=== PATIENT | male | born 1955 | race Caucasian/White ===

== ENCOUNTER 2016-11-26 17:30 | Inpatient (IN) | payer MEDICARE ==
[2016-11-26] MEDS ORDERED: SODIUM CHLORIDE 0.9% 500 ML IV STA (17:51)
[2016-11-26] MEDS ORDERED: LORazepam 2 MG/ML SYRINGE IV STA (17:51)
--- NOTE | 2016-11-26 18:28 | ED ---
Seizure HPI - General Chief Complaint: Seizure Stated Complaint: seizure Time Seen by Provider: 11/26/16 17:51 Source: patient, RN notes reviewed Mode of arrival: wheelchair Limitations: no limitations - History of Present Illness Initial Comments: 61-year-old male presents emergency Department with chief complaint of seizure. Patient states she's had 7 seizures today. Most recent one was one hour prior arrival which lasted 2 minutes tonic-clonic in nature. Patient has a history of epilepsy in which she takes Depakote and Dilantin. Patient states that he sees a neurologist in [place]. He has been taking his medications as prescribed. Patient has no complaints at this time. Patient denies any fever, chills. Patient states that he rarely has seizures and this is abnormal. Patient denies any nausea, vomiting diarrhea constipation. Patient offers no other complaints. - Related Data Home Medications Medication Instructions Recorded Confirmed Divalproex [Depakote] 1,500 mg PO BID 11/26/16 11/26/16 Phenytoin Sodium Extended 300 mg PO TID 11/26/16 11/26/16 [Dilantin] Allergies Allergy/AdvReac Type Severity Reaction Status Date / Time No Known Allergies Allergy Verified 11/26/16 17:43 Review of Systems ROS Statement: Those systems with pertinent positive or pertinent negative responses have been documented in the HPI. ROS Other: All systems not noted in ROS Statement are negative. Past Medical History Past Medical History: Diabetes Mellitus, Seizure Disorder History of Any Multi-Drug Resistant Organisms: None Reported Past Surgical History: No Surgical Hx Reported Past Psychological History: No Psychological Hx Reported Smoking Status: Never smoker Past Alcohol Use History: None Reported Past Drug Use History: None Reported General Exam Limitations: no limitations General appearance: alert, in no apparent distress Head exam: Present: atraumatic, normocephalic, normal inspection Neck exam: Present: normal inspection. Absent: tenderness, meningismus, lymphadenopathy Respiratory exam: Present: normal lung sounds bilaterally. Absent: respiratory distress, wheezes, rales, rhonchi, stridor Cardiovascular Exam: Present: regular rate, normal rhythm, normal heart sounds. Absent: systolic murmur, diastolic murmur, rubs, gallop, clicks GI/Abdominal exam: Present: soft, normal bowel sounds. Absent: distended, tenderness, guarding, rebound, rigid Neurological exam: Present: alert, oriented X3, CN II-XII intact, reflexes normal. Absent: motor sensory deficit Skin exam: Present: warm, dry, intact, normal color. Absent: rash Course Vital Signs 11/26/16 17:41 Temperature 98.0 F Pulse Rate 109 H Respiratory 18 Rate Blood Pressure 116/74 O2 Sat by Pulse 95 Oximetry Medical Decision Making - Lab Data Result diagrams: 11/26/16 18:50 11/26/16 18:50 Lab Results 11/26/16 11/26/16 Range/Units 18:50 18:50 WBC 8.6 (3.8-10.6) k/uL RBC 4.66 (4.30-5.90) m/uL Hgb 14.9 (13.0-17.5) gm/dL Hct 43.5 (39.0-53.0) % MCV 93.2 (80.0-100.0) fL MCH 32.0 (25.0-35.0) pg MCHC 34.3 (31.0-37.0) g/dL RDW 11.8 (11.5-15.5) % Plt Count 371 (150-450) k/uL Neutrophils % 77 % Lymphocytes % 13 % Monocytes % 8 % Eosinophils % 0 % Basophils % 0 % Neutrophils # 6.6 (1.3-7.7) k/uL Lymphocytes # 1.1 (1.0-4.8) k/uL Monocytes # 0.7 (0-1.0) k/uL Eosinophils # 0.0 (0-0.7) k/uL Basophils # 0.0 (0-0.2) k/uL Sodium 141 (137-145) mmol/L Potassium 5.2 H (3.5-5.1) mmol/L Chloride 98 (98-107) mmol/L Carbon Dioxide 25 (22-30) mmol/L Anion Gap 18 mmol/L BUN 14 (9-20) mg/dL Creatinine 0.60 L (0.66-1.25) mg/dL Est GFR (MDRD) Af Amer >60 (>60 ml/min/1.73 sqM) Est GFR (MDRD) Non-Af >60 (>60 ml/min/1.73 sqM) Glucose 323 H (74-99) mg/dL Calcium 10.1 (8.4-10.2) mg/dL Total Bilirubin 0.7 (0.2-1.3) mg/dL AST 15 L (17-59) U/L ALT 27 (21-72) U/L Alkaline Phosphatase 120 (38-126) U/L Total Protein 8.0 (6.3-8.2) g/dL Albumin 4.4 (3.5-5.0) g/dL Phenytoin <3.0 ug/mL Valproic Acid 47.2 ug/mL Acetone, Qual Positive (Negative) Disposition Clinical Impression: Epileptic seizure, Hyperglycemia Disposition: ADMITTED IP TO THIS HOSP Condition: Stable
[2016-11-26 19:17] LABS: ALT 27 U/L (21-72); AST 15 U/L (17-59); Alkaline Phosphatase 120 U/L (38-126); Anion Gap 18 mmol/L; Blood Urea Nitrogen 14 mg/dL (9-20); Calcium 10.1 mg/dL (8.4-10.2); Carbon Dioxide 25 mmol/L (22-30); Chloride 98 mmol/L (98-107); Glucose 323 mg/dL (74-99); Non-African American GFR(MDRD) >60 (>60 ml/min/1.73 sqM); Potassium 5.2 mmol/L (3.5-5.1); Sodium 141 mmol/L (137-145); Total Bilirubin 0.7 mg/dL (0.2-1.3)
[2016-11-26 19:41] LABS: Basophils % (A) 0 %; CH 32.8; CHCM 35.3; Eosinophils % (A) 0 %; HCT 43.5 % (39.0-53.0); HDW 2.61; HGB 14.9 gm/dL (13.0-17.5); Luc # (Auto) 0.11; Luc % (Auto) 1; Lymphocytes # (A) 1.1 k/uL (1.0-4.8); Lymphocytes % (A) 13 %; MCHC 34.3 g/dL (31.0-37.0); MCV 93.2 fL (80.0-100.0); Mean Platelet Volume 7.1; Monocytes # (A) 0.7 k/uL (0-1.0); Monocytes % (A) 8 %; Neutrophils # (A) 6.6 k/uL (1.3-7.7); Neutrophils % (A) 77 %; RBC 4.66 m/uL (4.30-5.90); RDW 11.8 % (11.5-15.5); WBC 8.6 k/uL (3.8-10.6); WBC (Perox) 8.17
[2016-11-26] MEDS ORDERED: PHENYTOIN SODIUM INJ 1,000 MG in SODIUM CHLORIDE 0.9% 100 ML IVPB STA (20:02)
[2016-11-26] MEDS ORDERED: SODIUM CHLORIDE 0.9% 1,000 ML IV ONE (20:03)
[2016-11-26] MEDS ORDERED: NALOXONE 0.4 MG/ML 1 ML VIAL IV PRN (20:04)
[2016-11-26] MEDS ORDERED: LORazepam 2 MG/ML SYRINGE IV PRN (20:05)
[2016-11-26] MEDS ORDERED: INSULIN LISPRO (humaLOG) 300 UNIT/3 ML VIAL SQ SCH (21:00)
[2016-11-26 21:10] LABS: Hemoglobin A1C 13.4 % (4.2-6.1)
[2016-11-26 21:30] LABS: Glucose,Whole Blood 267 mg/dL (75-99)
[2016-11-27] MEDS ORDERED: INSULIN REGULAR BOLUS (FROM DRIP BAG) IV ONE (00:10)
[2016-11-27] MEDS ORDERED: Potassium Replacement Protocol 1 EACH MISC MISCELLANE PRN (00:10)
[2016-11-27] MEDS ORDERED: Magnesium Replacement Protocol 1 EACH MISC MISCELLANE PRN (00:10)
[2016-11-27] MEDS: INSULIN REGULAR 100 UNIT in SODIUM CHLORIDE 0.9% 100 ML IV SCH ×2 (01:01→11:31)
[2016-11-27 01:03] LABS: Glucose,Whole Blood 235 mg/dL (75-99)
[2016-11-27 01:22] LABS: Basophils % (A) 0 %; CH 32.3; CHCM 34.2; Eosinophils % (A) 0 %; HCT 37.6 % (39.0-53.0); HDW 2.64; HGB 12.5 gm/dL (13.0-17.5); Luc # (Auto) 0.17; Luc % (Auto) 3; Lymphocytes # (A) 1.9 k/uL (1.0-4.8); Lymphocytes % (A) 27 %; MCH 31.5 pg (25.0-35.0); MCHC 33.1 g/dL (31.0-37.0); Mean Platelet Volume 6.6; Monocytes # (A) 0.5 k/uL (0-1.0); Monocytes % (A) 7 %; Neutrophils # (A) 4.5 k/uL (1.3-7.7); Neutrophils % (A) 64 %; RBC 3.96 m/uL (4.30-5.90); WBC 7.1 k/uL (3.8-10.6); WBC (Perox) 7.42
[2016-11-27 01:34] LABS: Anion Gap 13 mmol/L; Blood Urea Nitrogen 13 mg/dL (9-20); Carbon Dioxide 21 mmol/L (22-30); Chloride 105 mmol/L (98-107); Glucose 254 mg/dL (74-99); Non-African American GFR(MDRD) >60 (>60 ml/min/1.73 sqM); Potassium 4.5 mmol/L (3.5-5.1); Sodium 139 mmol/L (137-145)
[2016-11-27] MEDS: D5-0.45% NACL WITH KCL 20MEQ/L 1,000 ML IV SCH ×3 (01:47→14:32)
[2016-11-27 02:02] LABS: Glucose,Whole Blood 220 mg/dL (75-99)
--- NOTE | 2016-11-27 02:10 | CT ---
EXAMINATION TYPE: CT brain wo con DATE OF EXAM: 11/27/2016 1:42 AM COMPARISON: NONE HISTORY: seizure CT DLP: 1165 mGycm Automated exposure control for dose reduction was used. FINDINGS: There is irregular 2 cm area of hypodensity in the anterior right internal capsule. There is no midli ne shift. There are small high attenuation components and this could be small areas of acute hemorrha ge. The calvarium is intact. Sella turcica is normal. Ventricles have normal size. IMPRESSION: There is mixed high and low attenuation in the right internal capsule anteriorly suggestive of a suba cute hemorrhagic infarct. Mild cerebral atrophy.
[2016-11-27 03:01] LABS: Glucose,Whole Blood 209 mg/dL (75-99)
[2016-11-27 04:03] LABS: Glucose,Whole Blood 175 mg/dL (75-99)
[2016-11-27 05:10] LABS: Glucose,Whole Blood 134 mg/dL (75-99)
[2016-11-27 06:04] LABS: Appearance,Urine Clear (Clear); Bilirubin,Urine 1+ (Negative); Glucose,Urine (UA) 4+ (Negative); Leukocyte Esterase,Urine Negative (Negative); Nitrite,Urine Negative (Negative); PH, Urine 5.5 (5.0-8.0); Protein,Urine Trace (Negative); Specific Gravity,Urine 1.025 (1.001-1.035); UA Billing (MACRO vs. MICRO) CHEM
[2016-11-27 06:24] LABS: Glucose,Whole Blood 105 mg/dL (75-99)
[2016-11-27 06:24] LABS: Ketones,Urine 4+ (Negative)
[2016-11-27] MEDS: PANTOPRAZOLE 40 MG TABLET PO SCH (06:32)
[2016-11-27 06:49] LABS: Anion Gap 8 mmol/L; Blood Urea Nitrogen 12 mg/dL (9-20); Carbon Dioxide 25 mmol/L (22-30); Chloride 107 mmol/L (98-107); Glucose 119 mg/dL (74-99); Non-African American GFR(MDRD) >60 (>60 ml/min/1.73 sqM); Phosphorous 2.6 mg/dL (2.5-4.5); Potassium 3.8 mmol/L (3.5-5.1); Sodium 140 mmol/L (137-145)
[2016-11-27 07:16] LABS: Glucose,Whole Blood 190 mg/dL (75-99)
[2016-11-27] MEDS: PHENYTOIN SODIUM EXTENDED 100 MG CAP PO SCH ×2 (08:19→20:43)
[2016-11-27] MEDS: DIVALPROEX ER 500 MG TAB.ER.24H PO SCH ×2 (08:20→20:40)
[2016-11-27 08:27] LABS: Glucose,Whole Blood 129 mg/dL (75-99)
[2016-11-27] MEDS ORDERED: D5-0.45% NACL WITH KCL 20MEQ/L 1,000 ML IV SCH (09:00)
[2016-11-27] MEDS ORDERED: HEPARIN SODIUM,PORCINE 5,000 UNIT/ML 1 ML VIAL SQ SCH (09:00)
[2016-11-27 09:12] LABS: Glucose,Whole Blood 131 mg/dL (75-99)
[2016-11-27 10:14] LABS: Glucose,Whole Blood 203 mg/dL (75-99)
[2016-11-27 11:06] VITALS: BMI 25.5
[2016-11-27 11:08] LABS: Anion Gap 14 mmol/L; Blood Urea Nitrogen 11 mg/dL (9-20); Carbon Dioxide 22 mmol/L (22-30); Chloride 106 mmol/L (98-107); Glucose 194 mg/dL (74-99); Non-African American GFR(MDRD) >60 (>60 ml/min/1.73 sqM); Phosphorous 3.1 mg/dL (2.5-4.5); Potassium 4.3 mmol/L (3.5-5.1); Sodium 142 mmol/L (137-145)
[2016-11-27 11:29] LABS: Glucose,Whole Blood 266 mg/dL (75-99)
[2016-11-27] MEDS: INSULIN LISPRO (humaLOG) 300 UNIT/3 ML VIAL SQ SCH ×5 (12:18→20:41)
--- NOTE | 2016-11-27 14:43 | HP ---
DATE OF SERVICE: 11/16/2016 CHIEF COMPLAINT: Seizures. HISTORY OF PRESENT ILLNESS: This 61-year-old gentleman with a past medical history of multiple medical problems, including diabetes and seizure disorder being followed by a primary physician Dr. Dockery in the [facility] was visiting family in the [facility]. Patient apparently had recurrent seizures. Patient also was found to have at least 7 seizures today. The medication was being adjusted apparently in the outpatient setting with the primary physician. The most recent was one was 1 hour prior to arrival at [facility] with 2 ( ) tonic-clonic seizures. The patient is taking Depakote and Dilantin. The patient was also found to have elevated blood sugars with ketones, indicating diabetic ketosis. The patient admitted for further evaluation and treatment. There is no history of any fever, rigors, chills. No history of headache. There is no melena at this time. PAST MEDICAL HISTORY: Diabetes mellitus, seizure disorder. Medications prior to admission include: 1. Dilantin 300 mg b.i.d. and 2. Depakote ER 15 mg bid. Allergies are none. FAMILY HISTORY: History of CHF and CVAT in the family. SOCIAL HISTORY: No history of smoking. No history of alcohol intake. REVIEW OF SYSTEMS: ENT: No diminished hearing, diminished vision. CARDIOVASCULAR: No angina or palpitations. RESPIRATORY: No cough. GI: No nausea. : No dysuria. NERVOUS: No numbness or weakness. As mentioned earlier. MUSCULOSKELETAL: As mentioned earlier. HEMATOLOGY/ONCOLOGY: No history of anemia. ENDOCRINE: No history of diabetes, hypothyroidism. CONSTITUTIONAL: As mentioned earlier. DERMATOLOGY: Negative. RHEUMATOLOGY: Negative. PSYCHIATRY: As mentioned earlier. PHYSICAL EXAMINATION: Alert and oriented x2. Pulse is 109, blood pressure 116/74, respirations 18, temperature 98 degrees, pulse ox 94% on room air. HEENT: Conjunctivae normal. NECK: No jugular venous distension. CARDIOVASCULAR: S1 and S2 muffled. RESPIRATORY: Breath sounds diminished in the bases. A few rhonchi. No crackles. Abdomen is soft, nontender. No mass palpable. LEGS: No edema. No swelling. NERVOUS SYSTEM: Higher functions as mentioned. Moves all 4 limbs. No focal motor or sensory deficits. LYMPHATIC: No lymph node enlargement in neck, axillae or groin. SKIN: No ulcer, rash or bleeding. LABS: CBC within normal limits. Potassium 5.2, glucose 323. Hemoglobin A1c of 13.4. ASSESSMENT: 1. Recurrent tonic-clonic seizures with breakthrough seizures. 2. Diabetes mellitus type 2, uncontrolled with early diabetic ketoacidosis present on admission. 3. Hemoglobin A1c of 13.4. 4. History of diabetes mellitus. 5. History of seizure disorder. 6. FULL CODE. RECOMMENDATIONS AND DISCUSSION: In this 61-year-old gentleman who presented with multiple complex medical issues, we will monitor the patient closely. Continue the current medications. Continue symptomatic treatment. IV phenytoin, neurology consultation, seizure precautions. Monitor lytes closely. Repeat labs. Otherwise, DKA protocol. Guarded prognosis because of multiple complex medical issues. Also recommend DVT prophylaxis as well as proton pump inhibitors, also. Also recommend neurology consultation with Dr. Mcclellan as well as CT scan the brain, also. Prognosis guarded. Further recommendations to follow. See orders for further details.
--- NOTE | 2016-11-27 15:10 | CT ---
EXAMINATION TYPE: CT brain wo con DATE OF EXAM: 11/27/2016 2:43 PM COMPARISON: Today HISTORY: 12 hour recheck, possible infarct CT DLP: 1123 mGycm Automated exposure control for dose reduction was used. FINDINGS: There is a 3 cm area of mixed attenuation involving the anterior limb of the right internal capsule. There is predominantly low attenuation but some small areas of higher attenuation. There is no midlin e shift. The calvarium is intact. IMPRESSION: There is a mixed density lesion in the anterior limb right internal capsule that I think is most like ly a hemorrhagic acute infarct and appears stable compared to the exam 12 hours ago. I do not see any significant mass effect to suggest a tumor.
[2016-11-27 16:56] LABS: Glucose,Whole Blood 216 mg/dL (75-99)
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
[2016-11-27] MEDS: INSULIN GLARGINE 100 UNIT/ML 10 ML VIAL SQ SCH (20:41)
[2016-11-27] MEDS: MELATONIN 3 MG TABLET PO SCH (20:43)
[2016-11-27 20:53] LABS: Glucose,Whole Blood 208 mg/dL (75-99)
[2016-11-28 06:17] LABS: Glucose,Whole Blood 185 mg/dL (75-99)
[2016-11-28] MEDS: PANTOPRAZOLE 40 MG TABLET PO SCH (06:57)
[2016-11-28] MEDS: INSULIN LISPRO (humaLOG) 300 UNIT/3 ML VIAL SQ SCH ×7 (06:58→20:17)
[2016-11-28 07:45] LABS: Basophils % (A) 0 %; CH 32.5; CHCM 34.6; Eosinophils # (A) 0.1 k/uL (0-0.7); Eosinophils % (A) 1 %; HDW 2.59; HGB 12.7 gm/dL (13.0-17.5); Luc # (Auto) 0.19; Luc % (Auto) 3; Lymphocytes % (A) 30 %; MCH 31.5 pg (25.0-35.0); MCHC 33.4 g/dL (31.0-37.0); MCV 94.4 fL (80.0-100.0); Mean Platelet Volume 7.1; Monocytes # (A) 0.7 k/uL (0-1.0); Monocytes % (A) 10 %; Neutrophils # (A) 3.7 k/uL (1.3-7.7); Neutrophils % (A) 55 %; RBC 4.03 m/uL (4.30-5.90); WBC 6.7 k/uL (3.8-10.6)
[2016-11-28 08:03] LABS: Anion Gap 10 mmol/L; Blood Urea Nitrogen 8 mg/dL (9-20); Calcium 9.5 mg/dL (8.4-10.2); Carbon Dioxide 24 mmol/L (22-30); Chloride 105 mmol/L (98-107); Cholesterol 269 mg/dL (<200); Glucose 213 mg/dL (74-99); HDL Cholesterol 37 mg/dL (40-60); Magnesium 1.6 mg/dL (1.6-2.3); Non-African American GFR(MDRD) >60 (>60 ml/min/1.73 sqM); Potassium 4.2 mmol/L (3.5-5.1); Sodium 139 mmol/L (137-145); Triglycerides 300 mg/dL (<150)
[2016-11-28] MEDS: PHENYTOIN SODIUM EXTENDED 100 MG CAP PO SCH ×2 (09:13→20:17)
[2016-11-28] MEDS: DIVALPROEX ER 500 MG TAB.ER.24H PO SCH ×2 (09:13→20:35)
--- NOTE | 2016-11-28 11:39 | PN ---
DATE OF SERVICE: 11/27/2016 This 61-year-old gentleman who was admitted with seizures had recurrent tonic-clonic seizures. The patient also had diabetes mellitus type 2 with some hypoglycemia. The patient had D5 drip also. CAT scan of the brain was done yesterday which showed mixed density in the anterior of the internal capsule. Possibly hemorrhage acute infarct. No significant mass effect was noted. Neurology is following the patient closely. Past medical history reviewed. REVIEW OF SYSTEMS: CARDIOVASCULAR: No angina. RESPIRATORY: As mentioned earlier. GASTROINTESTINAL: As mentioned earlier. GENITOURINARY: No dysuria. CENTRAL NERVOUS SYSTEM: As mentioned earlier. Current medications are reviewed and include: 1. Depakote ER 1500 mg b.i.d. 2. Lantus 15 units subcu q.h.s. 3. Humalog. 4. Ativan 1 mg q.2 p.r.n. 5. Melatonin. 6. Narcan. 7. Protonix. 8. Dilantin. PHYSICAL EXAMINATION: Patient is alert and oriented times two. Pulse 80, blood pressure 140/79. Respiratory rate 19, temperature 98.6, pulse ox 94% on room air. HEENT: Conjunctivae normal. NECK: No jugular venous distention. CARDIOVASCULAR: S1, S2 muffled. RESPIRATORY: Breath sounds diminished in the bases. No rhonchi, no crackles. ABDOMEN: Soft, nontender. No mass palpable. LEGS: No edema. No swelling. CENTRAL NERVOUS SYSTEM: Higher functions as mentioned. Moves all 4 limbs. Cranial nerves grossly intact. Otherwise moves all 4 limbs. No focal motor or sensory deficits. No cerebellar dysfunction. Gait is normal. LAB INVESTIGATIONS: Glucose 203, WBC 7.9, hemoglobin 12.5, drug screen is positive benzodiazepines as well as barbiturates. Urine acetone was positive but hemoglobin A1C was 13.4, without any anion gap or abnormal CO2. ASSESSMENT: 1. Recurrent tonic clonic seizures with breakthrough seizures for evaluation. 2. Possibly new onset hemorrhagic acute infarct in the right interna capsule anteriorly limb. 3. Diabetes mellitus type 2, uncontrolled with early diabetic ketoacidosis present on admission. 4. Hemoglobin A1c 13.4. 5. History of diabetes mellitus type 2, uncontrolled. 6. History of seizure disorder. 7. Hemoglobin A1c 13.4. 8. Anemia, normocytic, anemia of chronic disease. 9. FULL CODE. RECOMMENDATIONS AND DISCUSSION: This 58-year-old gentleman who presented with multiple complex medical issues, we will monitor the patient closely, continue current medications and continue symptomatic treatment. Otherwise, I would also recommend full stroke work-up including 2-D echo with carotid Doppler. Neurology consultation, seizure precautions. Also recommend lipid panel. Guarded prognosis because of multiple complex medical issues. Further recommendations to follow. See orders for further details. Closely follow with Dr. Mcclellan. Avoid antiplatelet agents because of the concern for the hemorrhagic transformation. CT scan was reviewed. Prognosis guarded. Discussed with the patient. Further recommendations to follow. MTDD
[2016-11-28 11:55] LABS: Glucose,Whole Blood 178 mg/dL (75-99)
[2016-11-28] MEDS ORDERED: PHENYTOIN SODIUM INJ 500 MG in SODIUM CHLORIDE 0.9% 100 ML IVPB STA (14:20)
[2016-11-28] MEDS ORDERED: VALPROATE SODIUM 500 MG in SODIUM CHLORIDE 0.9% 50 ML IVPB STA (14:23)
[2016-11-28] MEDS ORDERED: PHENYTOIN SODIUM INJ 200 MG in SODIUM CHLORIDE 0.9% 100 ML IVPB ONE (14:24)
--- NOTE | 2016-11-28 14:33 | P.PN ---
Subjective Principal diagnosis: Seizures This 61-year-old male continue be evaluated by the neurology service for a complaint of seizures. Recall it was determined that his seizures were likely brought on from noncompliance of his Depakote and Dilantin. His drug levels were again subtherapeutic, so a loading dose to the IV has been ordered for both medications. He denies seizure activity since admission. Recall that a CT of the brain was done and showed a subacute hemorrhage and small area of infarct in the right internal capsule. A repeat CT in 12 hours showed no change. The age of this changes undetermined. He denies any new neurological changes since admission. He continues to deny nausea vomiting or headaches. An EEG, MRI, carotid Doppler have all been ordered. Objective - Vital Signs Vital signs: Vital Signs Temp 96.7 F L 11/28/16 11:29 Pulse 81 11/28/16 11:29 Resp 16 11/28/16 11:29 BP 133/77 11/28/16 11:29 Pulse Ox 95 11/28/16 11:29 Intake & Output 11/27/16 11/28/16 11/28/16 18:59 06:59 18:59 Intake Total 791.647 Output Total 750 500 500 Balance 41.647 -500 -500 Weight 85.5 kg 83 kg Intake: Intake, IV Titration 155.647 Amount D5-0.45% NaCl with KCl 150 20Meq/l 1,000 ml @ 150 mls/hr IV .Q6H40M [facility] Rx# :[id number] Insulin Regular 100 unit 5.647 In Sodium Chloride 0.9% 100 ml @ 0.1 UNITS/KG/HR 8.7 mls/hr IV .[id number] [facility] Rx#:[id number] Oral 636 Output: Urine 750 500 500 Other: # Voids 3 - Constitutional General appearance: Present: average body habitus, no acute distress - EENT Eyes: Present: EOMI, PERRLA. Absent: abnormal pupil, ptosis ENT: Present: hearing grossly normal - Neck Neck: Present: normal ROM. Absent: rigidity - Respiratory Respiratory: negative: prolonged expiration, prolonged inspiration - Cardiovascular Rhythm: regular - Gastrointestinal General gastrointestinal: Absent: distended, tenderness - Neurologic Neurologic Comment(s): She is alert awake and oriented 3. Speech-language are normal. There is no lateralizing weakness. There is no facial asymmetry. No sensory deficits are noted. There is no tremor or seizure-like activity seen. - Labs CBC & Chem 7: 11/28/16 07:06 11/28/16 07:06 Labs: Abnormal Lab Results - Last 24 Hours (Table) 11/27/16 11/27/16 11/28/16 Range/Units 16:41 20:25 05:56 RBC (4.30-5.90) m/uL Hgb (13.0-17.5) gm/dL Hct (39.0-53.0) % BUN (9-20) mg/dL Creatinine (0.66-1.25) mg/dL Glucose (74-99) mg/dL POC Glucose (mg/dL) 216 H 208 H 185 H (75-99) mg/dL Triglycerides (<150) mg/dL Cholesterol (<200) mg/dL LDL Cholesterol, Calc (0-99) mg/dL HDL Cholesterol (40-60) mg/dL 11/28/16 11/28/16 11/28/16 Range/Units 07:06 07:06 11:38 RBC 4.03 L (4.30-5.90) m/uL Hgb 12.7 L (13.0-17.5) gm/dL Hct 38.0 L (39.0-53.0) % BUN 8 L (9-20) mg/dL Creatinine 0.50 L (0.66-1.25) mg/dL Glucose 213 H (74-99) mg/dL POC Glucose (mg/dL) 178 H (75-99) mg/dL Triglycerides 300 H (<150) mg/dL Cholesterol 269 H (<200) mg/dL LDL Cholesterol, Calc 172 H (0-99) mg/dL HDL Cholesterol 37 L (40-60) mg/dL Assessment and Plan (1) Subtherapeutic serum dilantin level Status: Acute (2) Seizure secondary to subtherapeutic anticonvulsant medication Status: Acute (3) 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 He will follow-up with his neurologist after discharge. Continue neurological checks. His subtherapeutic Dilantin and Depakote levels were likely due to noncompliance. We will recheck a trough level of both in the morning. In the meantime I have ordered a small loading dose of 200 mg Dilantin 500 mg Depakote IV. Continue Dilantin and Depakote at preadmission doses for now. Continue seizure precautions. An EEG in the above studies are pending. We will continue to follow and make recommendations based on the above studies. I have reviewed the history and physical on the above patient. I have reviewed the above note, and agree.
[2016-11-28 16:59] LABS: Glucose,Whole Blood 202 mg/dL (75-99)
[2016-11-28 20:12] LABS: Glucose,Whole Blood 252 mg/dL (75-99)
[2016-11-28] MEDS: INSULIN GLARGINE 100 UNIT/ML 10 ML VIAL SQ SCH (20:16)
[2016-11-28] MEDS: MELATONIN 3 MG TABLET PO SCH (20:17)
[2016-11-29 05:44] LABS: Glucose,Whole Blood 209 mg/dL (75-99)
[2016-11-29 06:48] LABS: Basophils % (A) 1 %; CH 32.9; CHCM 34.8; Eosinophils # (A) 0.1 k/uL (0-0.7); Eosinophils % (A) 2 %; HCT 37.8 % (39.0-53.0); HDW 2.57; HGB 12.6 gm/dL (13.0-17.5); Luc # (Auto) 0.12; Luc % (Auto) 2; Lymphocytes # (A) 1.6 k/uL (1.0-4.8); Lymphocytes % (A) 27 %; MCH 31.7 pg (25.0-35.0); MCHC 33.4 g/dL (31.0-37.0); Mean Platelet Volume 7.5; Monocytes # (A) 0.7 k/uL (0-1.0); Monocytes % (A) 12 %; Neutrophils # (A) 3.4 k/uL (1.3-7.7); Neutrophils % (A) 57 %; RBC 3.98 m/uL (4.30-5.90); RDW 12.1 % (11.5-15.5); WBC (Perox) 6.28
[2016-11-29 07:02] LABS: Glucose,Whole Blood 190 mg/dL (75-99)
[2016-11-29] MEDS: ATORVASTATIN 40 MG TAB PO SCH ×2 (07:02→07:04)
[2016-11-29] MEDS: INSULIN LISPRO (humaLOG) 300 UNIT/3 ML VIAL SQ SCH ×7 (07:02→20:42)
[2016-11-29] MEDS: PANTOPRAZOLE 40 MG TABLET PO SCH (07:02)
[2016-11-29 07:10] LABS: Anion Gap 10 mmol/L; Blood Urea Nitrogen 8 mg/dL (9-20); Calcium 9.3 mg/dL (8.4-10.2); Carbon Dioxide 25 mmol/L (22-30); Chloride 104 mmol/L (98-107); Glucose 219 mg/dL (74-99); Non-African American GFR(MDRD) >60 (>60 ml/min/1.73 sqM); Potassium 4.2 mmol/L (3.5-5.1); Sodium 139 mmol/L (137-145)
[2016-11-29] MEDS: DIVALPROEX ER 500 MG TAB.ER.24H PO SCH ×2 (08:52→19:25)
[2016-11-29] MEDS: PHENYTOIN SODIUM EXTENDED 100 MG CAP PO SCH ×2 (08:52→19:24)
[2016-11-29 13:00] LABS: Glucose,Whole Blood 246 mg/dL (75-99)
--- NOTE | 2016-11-29 13:17 | US ---
EXAMINATION TYPE: US carotid duplex BILAT DATE OF EXAM: 11/29/2016 12:45 PM COMPARISON: NONE CLINICAL HISTORY: seizure, diabetes per patient. EXAM MEASUREMENTS: RIGHT: Peak Systolic Velocity (PSV) cm/sec ----- Right CCA: 64.7 ----- Right ICA: 65.8 ----- Right ECA: 92.4 ICA/CCA ratio: 1.0 RIGHT: End Diastole cm/sec ----- Right CCA: 21.9 ----- Right ICA: 19.7 ----- Right ECA: 9.1 LEFT: Peak Systolic Velocity (PSV) cm/sec ----- Left CCA: 80.5 ----- Left ICA: 72.6 ----- Left ECA: 80.5 ICA/CCA ratio: 009 LEFT: End Diastole cm/sec ----- Left CCA: 13.1 ----- Left ICA: 10.4 ----- Left ECA: 0.0 VERTEBRALS (direction of flow): Right Vertebral: Antegrade Left Vertebral: Antegrade Findings: Mild to moderate intimal wall changes noted at bilateral carotid bifurcation. IMPRESSION: No hemodynamically significant stenosis of the proximal internal carotid arteries bilate rally by Doppler criteria. This is an indirect measurement of carotid stenosis.
--- NOTE | 2016-11-29 13:58 | PN ---
DATE OF SERVICE: 11/28/2016 This 61-year-old gentleman who was admitted with seizures and recurrent tonic-clonic seizures also found to have subacute new onset right internal capsular hemorrhage infarct. The patient did not have any focal weakness at this time. The patient had some change in mental status, which is improving at this time. The patient also has uncontrolled diabetes mellitus and polyuria, and possible early diabetic ketoacidosis. Also the patient also had poorly controlled diabetes at home. No chest pain, no palpitation. PAST MEDICAL HISTORY: Reviewed. REVIEW OF SYSTEMS: CARDIOVASCULAR: No angina. RESPIRATORY: As mentioned earlier. GI: As mentioned earlier. : No dysuria. NERVOUS SYSTEM: No numbness or weakness. Current medications are reviewed and include: 1. Depakote 1500 mg b.i.d. 2. Lantus 15 units subcu q.h.s. 3. Humalog scale. 4. Ativan 1 mg q.2 p.r.n. 5. Potassium. 6. Narcan. 7. Protonix. 8. Dilantin. PHYSICAL EXAMINATION: The patient is alert and oriented x3. Pulse 91, blood pressure 130/70, respiration 18, temperature 97.6, pulse ox 94% on room air. HEENT: Conjunctivae normal. NECK: No jugular venous distention. CARDIOVASCULAR: S1 and S2, muffled. RESPIRATORY: Breath sounds diminished at the bases. A few scattered rhonchi, no crackles. ABDOMEN: Soft, nontender. LEGS: No edema, no swelling. NERVOUS SYSTEM: Diffusely weak. LABS: WBC 6.6, hemoglobin 12.7. Accu-Cheks are 252. Otherwise triglycerides 300 and cholesterol 269. ASSESSMENT: 1. Recurrent tonic clonic seizures with breakthrough seizures. 2. New onset hemorrhage, subacute, acute infarct in the right internal capsular anterior limb. 3. Diabetes mellitus type 2, uncontrolled with early diabetic ketoacidosis present on admissions. Hemoglobin A1c 13.4. 4. Hyperlipidemia. 5. Hypertriglyceridemia. 6. History of diabetes mellitus type 2, uncontrolled. 7. Seizure disorder. 8. Anemia, normocytic, anemia of chronic disease. 9. FULL CODE. RECOMMENDATIONS AND DISCUSSION: In this 61-year-old gentleman who presented with multiple complex medical issues. Will monitor the patient closely. Continue the continues medications and continue symptomatic treatment. I would recommend to continue with phenytoin. I will add Lipitor to the current regimen. Otherwise avoid antiplatelet agents because of the concern of hemorrhagic infarct. Closely follow with Neurology and continue with the further neurological work-up. Prognosis guarded, which I discussed in length with the family. I would also recommend a diabetic education also because of the history of noncompliance at home and further recommendations to follow.
[2016-11-29 16:48] LABS: Glucose,Whole Blood 180 mg/dL (75-99)
--- NOTE | 2016-11-29 18:13 | P.PN ---
Subjective Principal diagnosis: Patient is a 61-year-old male who is being followed by the neurology service for seizures. As you recall, seizure activity was likely due to noncompliance at [facility]. Patient states he cannot afford his medication. Patient has not had any seizure activity since admission. As you recall, CT of the brain was done and showed a subacute hemorrhage and small area of infarct in the right internal capsule. Repeat CT following showed no change. Age at this infarct is undetermined. At the time of my evaluation, patient is resting comfortably in bed and appears to be in no acute distress. Objective - Vital Signs Vital signs: Vital Signs Temp 97.6 F 11/29/16 15:34 Pulse 86 11/29/16 15:35 Resp 16 11/29/16 15:35 BP 127/77 11/29/16 15:34 Pulse Ox 95 11/29/16 15:34 Intake & Output 11/28/16 11/29/16 11/29/16 18:59 06:59 18:59 Output Total 500 1250 500 Balance -500 -1250 -500 Weight 85.9 kg Output: Urine 500 1250 500 Other: # Voids 3 - Exam PHYSICAL EXAM: GENERAL APPEARANCE: Patient is a well-developed, male who appears to be in no acute distress. HEENT: Normocephalic, atraumatic, no facial asymmetry is seen. Neck is supple with no masses felt. CARDIOVASCULAR: Regular rate and rhythm. ABDOMEN: Nontender, nondistended. EXTREMITIES: Show no edema or clubbing. NEUROLOGICAL EXAM: Patient is awake, alert, and oriented 3. Speech and language are normal. Strength is full in all 4 extremities. Sensory exam is normal to light touch in all 4 extremities. No tremors or seizure-like activity is noted. No facial asymmetry is seen on cranial nerve testing. - Labs CBC & Chem 7: 11/29/16 06:21 11/29/16 06:21 Labs: Abnormal Lab Results - Last 24 Hours (Table) 11/28/16 11/29/16 11/29/16 Range/Units 20:09 05:31 06:21 RBC 3.98 L (4.30-5.90) m/uL Hgb 12.6 L (13.0-17.5) gm/dL Hct 37.8 L (39.0-53.0) % BUN (9-20) mg/dL Creatinine (0.66-1.25) mg/dL Glucose (74-99) mg/dL POC Glucose (mg/dL) 252 H 209 H (75-99) mg/dL 11/29/16 11/29/16 11/29/16 Range/Units 06:21 07:01 12:53 RBC (4.30-5.90) m/uL Hgb (13.0-17.5) gm/dL Hct (39.0-53.0) % BUN 8 L (9-20) mg/dL Creatinine 0.50 L (0.66-1.25) mg/dL Glucose 219 H (74-99) mg/dL POC Glucose (mg/dL) 190 H 246 H (75-99) mg/dL 11/29/16 Range/Units 16:41 RBC (4.30-5.90) m/uL Hgb (13.0-17.5) gm/dL Hct (39.0-53.0) % BUN (9-20) mg/dL Creatinine (0.66-1.25) mg/dL Glucose (74-99) mg/dL POC Glucose (mg/dL) 180 H (75-99) mg/dL Assessment and Plan Plan: Impression: 1. Seizure disorder 2. Subtherapeutic AED medication 3. Hyperglycemia Plan: Patient's seizure activity likely due to his subtherapeutic antiepileptic medication levels. Patient has not had seizures since his admission. Patient has therapeutic Dilantin level of 7.7 and therapeutic Depakote level of 49.9 today. Continue current Dilantin and Depakote doses. Continue seizure precautions. EEG results are pending. Will consult WATER QUALITY ASSISTANT for assistance in obtaining medications as an outpatient. Patient will follow-up with his neurologist as an outpatient, given his findings on the computed tomography scan. Will continue to follow on an as-needed basis. Continue current AED dosing. Barring any abnormalities on the EEG, patient is stable for discharge from neurology standpoint. I performed an examination of the patient and discussed the management with the STRATEGIES ANALYST. I have reviewed the STRATEGIES ANALYST notes and agree with the findings and plan of care.
[2016-11-29] MEDS: MELATONIN 3 MG TABLET PO SCH (19:24)
[2016-11-29 20:36] LABS: Glucose,Whole Blood 187 mg/dL (75-99)
[2016-11-29] MEDS: INSULIN GLARGINE 100 UNIT/ML 10 ML VIAL SQ SCH (20:42)
[2016-11-30 06:42] LABS: Anion Gap 12 mmol/L; Blood Urea Nitrogen 11 mg/dL (9-20); Calcium 9.3 mg/dL (8.4-10.2); Carbon Dioxide 24 mmol/L (22-30); Chloride 106 mmol/L (98-107); Glucose 154 mg/dL (74-99); Non-African American GFR(MDRD) >60 (>60 ml/min/1.73 sqM); Potassium 4.5 mmol/L (3.5-5.1); Sodium 142 mmol/L (137-145)
[2016-11-30 06:46] LABS: Basophils % (A) 0 %; CH 32.1; CHCM 33.7; Eosinophils # (A) 0.1 k/uL (0-0.7); Eosinophils % (A) 2 %; HCT 38.9 % (39.0-53.0); HDW 2.52; Luc # (Auto) 0.12; Luc % (Auto) 2; Lymphocytes # (A) 1.9 k/uL (1.0-4.8); Lymphocytes % (A) 29 %; MCHC 33.5 g/dL (31.0-37.0); MCV 95.6 fL (80.0-100.0); Mean Platelet Volume 6.8; Monocytes # (A) 0.6 k/uL (0-1.0); Monocytes % (A) 9 %; Neutrophils # (A) 3.9 k/uL (1.3-7.7); Neutrophils % (A) 59 %; RBC 4.07 m/uL (4.30-5.90); RDW 12.1 % (11.5-15.5); WBC 6.6 k/uL (3.8-10.6)
[2016-11-30 07:06] LABS: Glucose,Whole Blood 153 mg/dL (75-99)
[2016-11-30] MEDS: PANTOPRAZOLE 40 MG TABLET PO SCH (07:09)
[2016-11-30] MEDS: INSULIN LISPRO (humaLOG) 300 UNIT/3 ML VIAL SQ SCH ×4 (07:09→12:56)
[2016-11-30 07:42] VITALS: RESP 16
[2016-11-30] MEDS: DIVALPROEX ER 500 MG TAB.ER.24H PO SCH (07:45)
[2016-11-30] MEDS: ATORVASTATIN 40 MG TAB PO SCH (07:45)
[2016-11-30] MEDS: PHENYTOIN SODIUM EXTENDED 100 MG CAP PO SCH (07:45)
--- NOTE | 2016-11-30 09:53 | PN ---
DATE OF SERVICE: 11/29/2016 This 61-year-old gentleman who was admitted with recurrent tonic clonic seizures and breakthrough seizures is being closely monitored. The patient also was found to have acute CVA and neurovascular workup is underway. Carotid ultrasound showed no hemodynamic significant stenosis. No chest pain or palpitation. No fever. On exam, alert and oriented x3. Pulse 86, blood pressure 127/77, respirations 16, temperature 97.6, pulse ox 95% on room air. HEENT: Conjunctivae normal. NECK: No jugular venous distention. CARDIOVASCULAR: S1 and S2, muffled. RESPIRATORY: Breath sounds diminished at the bases. No rhonchi, no crackles. ABDOMEN: Soft, nontender. No mass palpable. LEGS: No edema, no swelling. NERVOUS SYSTEM: Higher function as mentioned. Moves all 4 limbs. No focal motor deficits. LYMPHATICS: No lymphadenopathy of neck, axillae or groin. SKIN: No ulcers, rashes or bleeding. LABS: Accu-Cheks noted 246, 180. Otherwise, hemoglobin is 12.7. ASSESSMENT: 1. Recurrent tonic clonic seizures with breakthrough seizures. 2. New onset hemorrhagic acute infarct in the right internal capsule in the anterior limb. 3. Diabetes mellitus type 2, uncontrolled with early diabetic ketoacidosis, present on admission with hemoglobin A1c 13.4. 4. Hyperlipidemia. 5. Hypertriglyceridemia. 6. History of diabetes mellitus type 2, uncontrolled. 7. Seizure disorder. 8. History of anemia, normocytic anemia of chronic disease. 9. FULL CODE. RECOMMENDATIONS AND DISCUSSION: Recommend to continue current medications, continue with monitoring. Continue symptomatic treatment. Hold antiplatelet agents. Continue with neurovascular workup. Closely follow with Neurology. Guarded prognosis. Further recommendations to follow.
[2016-11-30 11:43] VITALS: BP 128/77; PULSE 94; TEMP 97.6
[2016-11-30 12:29] LABS: Glucose,Whole Blood 232 mg/dL (75-99)
--- NOTE | 2016-11-30 12:58 | ECHOF ---
Referral Reason:Stroke MEASUREMENTS -------- HEIGHT: 182.9 cm WEIGHT: 84.8 kg BP: 140/80 RVIDd: 2.9 cm (< 3.3) IVSd: 1.2 cm (0.6 - 1.1) LVIDd: 4.6 cm (3.9 - 5.3) LVPWd: 1.0 cm (0.6 - 1.1) IVSs: 1.5 cm LVIDs: 3.0 cm LVPWs: 1.1 cm Ao Diam: 4.1 cm (2.0 - 3.7) AV Cusp: 2.4 cm (1.5 - 2.6) LA Diam: 3.6 cm (2.7 - 3.8) MV EXCURSION: 11.106 mm (> 18.000) MV EF SLOPE: 58 mm/s (70 - 150) EPSS: 0.7 cm MV E Alfredito: 0.53 m/s MV DecT: 212 ms MV A Alfredito: 0.71 m/s MV E/A Ratio: 0.75 RAP: 5.00 mmHg RVSP: 34.14 mmHg FINDINGS -------- Sinus rhythm. This was a technically adequate study. There is mild concentric left ventricular hypertrophy. Overall left ventricular systolic function is normal with, an EF between 55 - 60 %. The right ventricle is normal in size. The right atrial size is normal. There is mild aortic valve sclerosis. There is no evidence of aortic regurgitation. Mild mitral annular calcification present. Mild mitral regurgitation is present. Mild tricuspid regurgitation present. There is no evidence of pulmonary hypertension. The right ventricular systolic pressure, as measured by Doppler, is 34.14mmHg. There is no pulmonic regurgitation present. The aortic root size is normal. There is no pericardial effusion. CONCLUSIONS -------- 1. There is mild concentric left ventricular hypertrophy. 2. There is no pericardial effusion. 3. Overall left ventricular systolic function is normal with, an EF between 55 - 60 %. 4. There is mild aortic valve sclerosis. 5. Mild mitral annular calcification present. 6. Mild mitral regurgitation is present. 7. Mild tricuspid regurgitation present. 8. There is no evidence of pulmonary hypertension. 9. The right ventricular systolic pressure, as measured by Doppler, is 34.14mmHg. 10. The aortic root size is normal. LOGISTICS TEAM LEAD: Stacy Stewart RDCS
--- NOTE | 2016-12-01 17:58 | DS ---
DATE OF ADMISSION: 11/26/2016 DATE OF DISCHARGE: 11/30/2016 FINAL DIAGNOSIS(ES): 1. Recurrent tonic clonic seizures with breakthrough seizures, improved with subtherapeutic levels. 2. New onset hemorrhagic acute infarct capsule on the anterior lead. 3. Diabetes mellitus type 2, uncontrolled with diabetic ketoacidosis present on admission, hemoglobin A1c 13.4. 4. Hyperlipidemia. 5. Hypertriglyceridemia. 6. History of diabetes uncontrolled. 7. Seizure disorder. 8. History of anemia, normocytic anemia of chronic disease. 9. FULL CODE. DISCHARGE DISPOSITION: The patient will be discharged in a stable condition with guarded prognosis. Total time taken: More than 35 minutes. HISTORY OF PRESENT ILLNESS: This 61 -year-old gentleman with past medical history of multiple medical problems being followed by a neurologist and primary care physician in the [facility] was admitted to the hospital with features of tonic clonic seizures. Evaluation also new onset of hemorrhagic infarct, seizure controlled with multiple medications and 2-D echo with Doppler and carotid ultrasound was done. Dr. Mcclellan saw the patient from the neurologic point of view and cleared the patient for discharge. Ejection fraction of 55 to 60%. Mild aortic was also noted. On exam, vital signs stable. CARDIOVASCULAR: S1, S2 muffled. ABDOMEN: Soft. Nervous system: No focal deficits. DISCHARGE ADVICE AND MEDICATIONS: 1. Diet is cardiac. 2. Activity limited until follow-up. 3. Follow-up with the patient in one week. 4. Follow-up with in 3 to 4 days. 5. Follow-up labs in the outpatient setting. 6. Lipitor 40 mg p.o. daily. 7. Depakote 15 mL p.o. b.i.d. 8. Lantus 50 units subcutaneously at bedtime. 9. Accu-Cheks a.c. and q.h.s. sent to the primary doctor. 10. Protonix 40 mg p.o. with breakfast. 11. Dilantin 300 mg p.o. b.i.d. Dilantin per neurology. Keep checking the Dilantin levels closely in the outpatient setting. MTDD
--- NOTE | 2016-12-04 14:37 | EEG ---
DATE OF SERVICE: 11/29/2016 INDICATIONS FOR EXAMINATION: Seizures. AGE: 61Y Current antiepileptic medications: Dilantin and Depakote. DESCRIPTION OF PROCEDURE: This EEG was performed using a 21 channel digital electroencephalograph, following international 10-20 system. DESCRIPTION OF THE RECORDING: From the beginning of the tracing, with the patient's eyes closed, the background rhythm was mostly consisting of 8 Hz alpha frequency in the posterior occipital leads. No obvious asymmetry is seen. Occasional movement artifacts are seen. Photic stimulation was performed with minimal driving response seen. No pathological waves were elicited. Hyperventilation was not performed. The patient remains awake throughout the tracing. No epileptiform discharges were seen throughout the tracing. INTERPRETATION: This awake EEG can be considered within normal limits. There was no asymmetry seen. No epileptiform discharges were noticed. The absence of epileptiform discharges does not rule out the diagnosis of epilepsy. Therefore, clinical correlation is recommended.
== END 2016-11-30 15:34 | disposition home or self-care (01) | DRG 64 ==
LOC: EC 17:30 → 6SEL 20:04
PROVIDERS: ADMIT Hospitalist; ATTEND Hospitalist
DX: I61.8 Other nontraumatic intracerebral hemorrhage (principal); E13.10 Other specified diabetes mellitus with ketoacidosis without coma; G40.409 Other generalized epilepsy and epileptic syndromes, not intractable, without status epilepticus; T42.0X6A Underdosing of hydantoin derivatives, initial encounter; T42.6X6A Underdosing of other antiepileptic and sedative-hypnotic drugs, initial encounter; E78.1 Pure hyperglyceridemia; D63.8 Anemia in other chronic diseases classified elsewhere; E78.5 Hyperlipidemia, unspecified; Z82.49 Family history of ischemic heart disease and other diseases of the circulatory system; Z79.899 Other long term (current) drug therapy; Z87.820 Personal history of traumatic brain injury; Z82.3 Family history of stroke; Z91.14 Patient's other noncompliance with medication regimen; V89.2XXS Person injured in unspecified motor-vehicle accident, traffic, sequela
CPT/HCPCS: 36415; 70450; 80048; 80051; 80053; 80061; 80164; 80185; 80300; 81003; 82009; 82565; 82947; 83036; 83735; 84100; 84520; 85025; 93306; 93880; 95819; 96361; 96365; 96375; 99285